=== PATIENT | female | born 1940 | race Caucasian/White ===

== ENCOUNTER 2018-06-13 21:26 | Emergency (ER) | payer OTHER, BC ==
[~2018-06-13] VITALS: Ht 152.4 cm; Wt 68.9 kg
[2018-06-13 21:32] VITALS: Ht 152.4 cm; Wt 68.9 kg
[2018-06-13 23:05] LABS: microscopic required? YES; urine erythrocyte TRACE (NEGATIVE)
[2018-06-13 23:21] LABS: BASOPHIL % 0.4 % (0-2); CALCIUM 9.6 mg/dL (8.5-10.1); CARBON DIOXIDE 32.1 mmol/L (21-32); CHLORIDE SERUM 98 mmol/L (98-107); CREATININE SERUM 0.8 mg/dL (0.6-1.0); GLUCOSE SERUM 105 mg/dL (74-106); PLATELET COUNT 204 x10^3mcL (130-400); POTASSIUM SERUM 3.4 mmol/L (3.5-5.1); RED CELL DISTRIBUTION WIDTH 12.1 % (11.5-14.5); SODIUM SERUM 137 mmol/L (136-145)
[2018-06-13 23:26] LABS: ALBUMIN 3.8 g/dL (3.4-5.0); ALKALINE PHOSPHATASE 87 U/L (46-116); ALT/SGPT 9 U/L (14-59); AST/SGOT 22 U/L (15-37); BILIRUBIN TOTAL 0.39 mg/dL (0.20-1.00); LIPASE 93 IU/L (73-393); TOTAL PROTEIN, SERUM 8.1 g/dL (6.4-8.2)
[2018-06-14 00:45] VITALS: BP 152/89
== END 2018-06-14 00:40 | disposition home or self-care (01) ==
LOC: ED 21:26
PROVIDERS: Emergency Medicine
DX: S09.8XXA Other specified injuries of head, initial encounter (principal); S23.8XXA Sprain of other specified parts of thorax, initial encounter; E78.00 Pure hypercholesterolemia, unspecified; Z88.1 Allergy status to other antibiotic agents; Z88.2 Allergy status to sulfonamides; Z88.5 Allergy status to narcotic agent; W01.0XXA Fall on same level from slipping, tripping and stumbling without subsequent striking against object, initial encounter; Y93.89 Activity, other specified; Y92.59 Other trade areas as the place of occurrence of the external cause; Y99.8 Other external cause status
CPT/HCPCS: 83880; J1885

== ENCOUNTER 2019-04-27 19:42 | Emergency (ER) | payer BC ==
[~2019-04-27] VITALS: Ht 152.4 cm; Wt 67.6 kg
[2019-04-27 20:05] VITALS: Ht 152.4 cm; Wt 67.6 kg
[2019-04-27 23:25] LABS: microscopic required? YES; urine erythrocyte TRACE (NEGATIVE)
[2019-04-28 00:40] VITALS: BP 135/62
== END 2019-04-28 00:40 | disposition home or self-care (01) ==
LOC: ED 19:42
PROVIDERS: Emergency Medicine
DX: N12 Tubulo-interstitial nephritis, not specified as acute or chronic (principal); I10 Essential (primary) hypertension; Z85.3 Personal history of malignant neoplasm of breast; E78.00 Pure hypercholesterolemia, unspecified; Z88.1 Allergy status to other antibiotic agents; Z88.2 Allergy status to sulfonamides; Z88.5 Allergy status to narcotic agent; Z90.10 Acquired absence of unspecified breast and nipple
CPT/HCPCS: J1885